=== PATIENT | male | born 1975 | race African-American/Black ===

== ENCOUNTER 2022-04-10 17:56 | Emergency (ER) | payer SELFPAY ==
[~2022-04-10] VITALS: Ht 170.2 cm; Wt 73.0 kg
[2022-04-10 18:12] VITALS: BP 211/110
== END 2022-04-10 18:55 | disposition home or self-care (01) ==
LOC: ER 17:56
DX: R10.9 Unspecified abdominal pain (principal); E11.9 Type 2 diabetes mellitus without complications
CPT/HCPCS: 99283